=== PATIENT | male | born 1975 | race Caucasian/White ===

== ENCOUNTER → 2016-07-31 | Outpatient (CLI) | payer OTHER ==
--- NOTE | 2016-07-31 11:13 | ECHOS ---
DATE OF SERVICE: 07/31/2016 AGE: 41Y SEX: M HT: 6'2" WT: 190 lbs. Protocol Roni: X Others: Stress Echo Stage: III Dur. of Exercise: 9 minutes *Heart Rate Blood Pressure *Rest: 93 Rest: 144/70 * *Max. Achieved: 170 Maximum BP: 207/84 85% PMHR: 151 100% PMHR: 178 *METS: 10.3 INDICATION OF STUDY: Chest pain. MEDICATIONS: Metoprolol, losartan, amlodipine. STRESS DATA: The pretesting physical examination showed heart rate of 93, pressure is 144/70 mmHg. Baseline EKG showed sinus rhythm. The patient exercised on the treadmill according to Roni protocol for a total of 9 minutes and achieved 10.3 METs. Max heart rate was 170 beats per minute which is about 95% of maximum predicted heart rate. Maximum blood pressure was 207/84 mmHg. Clinically, the patient did not experience any symptoms of chest pain or discomfort during the testing or in the recovery and the EKG did not show any significant ST or T wave abnormalities consistent with ischemia. ECHOCARDIOGRAM IMAGES: On echocardiogram images from parasternal long axis view, parasternal short axis view, apical 4 chambers and apical 2 chambers view were obtained at the baseline images, at the peak of the heart rate, as well as on recovery and the echocardiogram images showed good augmentation in the left ventricular systolic function without any evidence of wall motion abnormalities consistent with ischemia. CONCLUSION: 1. Good exercise capacity. 2. Normal EKG in response to exercise. 3. Normal echocardiogram in response to exercise.
== END | disposition home or self-care (01) ==
LOC: RADNMMAIN 09:38
PROVIDERS: ATTEND Internal Medicine Interventional Cardiology
DX: R07.89 Other chest pain (principal); I10 Essential (primary) hypertension
CPT/HCPCS: 93017; 93350

== ENCOUNTER → 2016-08-07 | Outpatient (CLI) | payer OTHER ==
--- NOTE | 2016-08-08 10:27 | ECHOF ---
Referral Reason:[id number] htn R07.89 chest pain MEASUREMENTS -------- HEIGHT: 188.0 cm WEIGHT: 86.2 kg BP: 137/70 RVIDd: 3.2 cm (< 3.3) IVSd: 1.2 cm (0.6 - 1.1) LVIDd: 4.4 cm (3.9 - 5.3) LVPWd: 1.3 cm (0.6 - 1.1) IVSs: 1.7 cm LVIDs: 3.2 cm LVPWs: 1.9 cm LA Diam: 2.9 cm (2.7 - 3.8) LAESV Index (A-L): 33.55 ml/m Ao Diam: 3.7 cm (2.0 - 3.7) AV Cusp: 2.3 cm (1.5 - 2.6) MV EXCURSION: 14.967 mm (> 18.000) MV EF SLOPE: 135 mm/s (70 - 150) EPSS: 0.7 cm MV E Gregg: 1.01 m/s MV DecT: 151 ms MV A Gregg: 0.64 m/s MV E/A Ratio: 1.59 FINDINGS -------- Sinus rhythm. This was a technically good study. The left ventricular size is normal. There is mild concentric left ventricular hypertrophy. Overall left ventricular systolic function is normal with, an EF between 60 - 65 %. The right ventricle is normal in size. LA is midly dilated 29-33ml/m2. The right atrium is normal in size. Aortic valve is trileaflet and is mildly thickened. Mild mitral annular calcification present. The tricuspid valve appears structurally normal. No regurgitation noted The pulmonic valve was not well visualized. The aortic root is dilated measuring 3.7cm. The inferior vena cava is mildly dilated. There is no pericardial effusion. CONCLUSIONS -------- 1. Sinus rhythm. 2. Mild mitral annular calcification present. 3. The tricuspid valve appears structurally normal. 4. The pulmonic valve was not well visualized. 5. The aortic root is dilated measuring 3.7cm. 6. The inferior vena cava is mildly dilated. 7. There is no pericardial effusion. 8. This was a technically good study. 9. The left ventricular size is normal. 10. There is mild concentric left ventricular hypertrophy. 11. Overall left ventricular systolic function is normal with, an EF between 60 - 65 %. 12. The right ventricle is normal in size. 13. LA is midly dilated 29-33ml/m2. 14. The right atrium is normal in size. 15. Aortic valve is trileaflet and is mildly thickened. LAND DEGRADATION ANALYST: Chacha Fernandes RDCS
== END | disposition home or self-care (01) ==
LOC: RADECHMAIN 13:01
PROVIDERS: ATTEND Internal Medicine Interventional Cardiology
DX: I34.0 Nonrheumatic mitral (valve) insufficiency (principal); I51.7 Cardiomegaly
CPT/HCPCS: 93306

== ENCOUNTER 2021-09-20 12:11 | Emergency (ER) | payer OTHER ==
[2021-09-20 12:15] VITALS: BP 171/101; PULSE 90; RESP 18; TEMP 99.2
[2021-09-20] MEDS ORDERED: KETOROLAC 15 MG/ML 1 ML VIAL IVP STA (12:22)
--- NOTE | 2021-09-20 12:24 | ED ---
General Adult HPI - General Chief complaint: Extremity Injury, Lower Stated complaint: Rt Ankle Injury Time Seen by Provider: 09/20/21 12:16 Source: patient, RN notes reviewed, old records reviewed Mode of arrival: wheelchair Limitations: no limitations - History of Present Illness Initial comments: 46-year-old male presenting for evaluation of right ankle pain. Patient states he rolled his ankle yesterday evening while letting the dog out. No other significant injury reported. He's had pain and swelling in the ankle with any movement or weightbearing since the time of the injury. He has not taken any medication at home. - Related Data Previous Rx's Medication Instructions Recorded Ibuprofen [Motrin] 600 mg PO Q8HR PRN #24 tab 09/20/21 Allergies Allergy/AdvReac Type Severity Reaction Status Date / Time erythromycin base Allergy Rash/Hives Verified 09/20/21 12:15 Review of Systems ROS Statement: Those systems with pertinent positive or pertinent negative responses have been documented in the HPI. ROS Other: All systems not noted in ROS Statement are negative. Past Medical History Past Medical History: Hypertension History of Any Multi-Drug Resistant Organisms: None Reported Past Surgical History: Orthopedic Surgery Additional Past Surgical History / Comment(s): knee Past Psychological History: No Psychological Hx Reported Smoking Status: Current every day smoker Past Alcohol Use History: Occasional Past Drug Use History: None Reported General Exam Limitations: no limitations General appearance: alert, in no apparent distress Head exam: Present: atraumatic, normocephalic Eye exam: Present: normal appearance, PERRL ENT exam: Present: normal exam Neck exam: Present: normal inspection. Absent: tenderness, meningismus Respiratory exam: Present: normal lung sounds bilaterally. Absent: respiratory distress, wheezes Cardiovascular Exam: Present: regular rate, normal rhythm GI/Abdominal exam: Present: soft. Absent: distended, tenderness Extremities exam: Present: tenderness, joint swelling, other (Right ankle ecchymotic over the lateral malleolus, soft tissue swelling, distal pulses are i ntact, normal range of motion of the toes. No gross deformity.) Course Vital Signs 09/20/21 12:12 Temperature 99.2 F Pulse Rate 90 Respiratory 18 Rate Blood Pressure 171/101 O2 Sat by Pulse 99 Oximetry Procedures - Orthopedic Splinting/Casting Injury #1 Side: right Lower Extremity Injury Location: ankle Lower Extremity Immobilizer: stirrup splint Other Orthopedic Equipment: crutches Medical Decision Making - Medical Decision Making X-ray shows lateral malleolus fracture minimally displaced with soft tissue swelling. Patient placed in ankle stirrup. He is given anti-inflammatory medication, will follow-up with orthopedics. Disposition Clinical Impression: Fracture of ankle Disposition: HOME SELF-CARE Condition: Good Instructions (If sedation given, give patient instructions): Ankle Fracture (ED) Prescriptions: Ibuprofen [Motrin] 600 mg PO Q8HR PRN #24 tab PRN Reason: Pain Is patient prescribed a controlled substance at d/c from ED?: No Referrals: Tyrese Rubin MD [Primary Care Provider] - 1-2 days Gumaro Lyn MD [Medical Doctor] - 1-2 days Time of Disposition: 13:03
--- NOTE | 2021-09-20 12:44 | XR ---
EXAMINATION TYPE: XR ankle complete RT DATE OF EXAM: 09/20/2021 CLINICAL HISTORY: Pain after fall injury. TECHNIQUE: Frontal, lateral and oblique images of the right ankle are obtained. COMPARISON: None. FINDINGS: Mild to moderate soft tissue swelling over the lateral malleolus. Acute spiral type minimal ly displaced intra-articular fracture through the lateral malleolus seen best on oblique image. The a nkle mortise symmetry is maintained. Medial malleolus is intact. IMPRESSION: As above.
[2021-09-20] MEDS ORDERED: KETOROLAC 15 MG/ML 1 ML VIAL IM STA (12:56)
== END 2021-09-20 13:15 | disposition home or self-care (01) ==
LOC: EC 12:11
DX: S82.61XA Displaced fracture of lateral malleolus of right fibula, initial encounter for closed fracture (principal); I10 Essential (primary) hypertension; F17.200 Nicotine dependence, unspecified, uncomplicated; X50.1XXA Overexertion from prolonged static or awkward postures, initial encounter
CPT/HCPCS: 73610; 29515; 99283; 96372; J1885